=== PATIENT | female | born 1995 | race Caucasian/White ===

== ENCOUNTER 2017-05-15 09:22 | Outpatient (CLI) | payer BC ==
--- NOTE | 2017-05-15 11:24 | ULT ---
RIGHT UPPER QUADRANT ULTRASOUND: History: Right upper quadrant pain. Technique: Multiplanar grayscale and color doppler images were obtained in a right upper quadrant abd ominal ultrasound. FINDINGS: The liver is normal in echogenicity without focal lesions or intrahepatic ductal dilatation. The gall bladder is normal without stones, sludge, gallbladder wall thickening or pericholecystic fluid. The c ommon bile duct is normal measuring 2 mm. Visualized portions of the pancreas are unremarkable. The right kidney is normal in echogenicity with out hydronephrosis or calculus and measures 10.0 cm in length. IMPRESSION: Unremarkable exam. POS: [facility]
== END 2017-05-15 09:23 | disposition home or self-care (01) ==
LOC: ULT 09:22
PROVIDERS: ATTEND Pediatrics
DX: R10.11 Right upper quadrant pain (principal)
CPT/HCPCS: 76705

== ENCOUNTER 2017-07-09 14:02 | Outpatient (CLI) | payer BC ==
[2017-07-09] MEDS ORDERED: Iopamidol 370 76% 100 ML VIAL ONE (15:12)
== END 2017-07-09 14:03 | disposition home or self-care (01) ==
LOC: BICCT 14:02
PROVIDERS: ATTEND Internal Medicine
DX: R10.13 Epigastric pain (principal); R11.2 Nausea with vomiting, unspecified
CPT/HCPCS: 74177